=== PATIENT | male | born 1975 | race Caucasian/White ===

== ENCOUNTER 2018-12-25 11:05 | Emergency (ER) | payer BC, OTHER ==
[~2018-12-25] VITALS: Ht 160 cm; Wt 68.0 kg
[2018-12-25 11:37] LABS: ABSOLUTE NEUTROPHILS 13.2 thou/uL (1.4-8.2); BASOPHILS 0.3 % (0.0-2.0); EOSINOPHILS 0.1 % (0.0-3.0); HEMATOCRIT 48.6 % (42.0-52.0); HEMOGLOBIN 16.2 gm/dL (14.0-18.0); LYMPHOCYTES 5.1 % (24.0-44.0); MCH 32.7 pg (26.0-34.0); MCHC 33.3 g/dL (28.0-37.0); MCV 98.2 fL (80.0-100.0); MONOCYTES 3.6 % (1.0-8.0); PLATELET COUNT 333 thou/uL (150-400); POLYS 90.9 % (36.0-66.0); RBC 4.95 mil/uL (4.50-6.00); WBC 14.5 thou/uL (4.0-11.0)
[2018-12-25 11:44] LABS: CALCIUM 9.9 mg/dL (8.5-10.1); CREATININE 1.1 mg/dL (0.7-1.3); POTASSIUM 4.9 mmol/L (3.5-5.1)
[2018-12-25 11:50] LABS: ALBUMIN 4.2 g/dL (3.4-5.0); TOTAL BILIRUBIN 0.4 mg/dL (<0.1-1.0); TOTAL PROTEIN 8.5 g/dL (6.4-8.2)
[2018-12-25] MEDS ORDERED: NORCO 5-325 TA1 EAC1 PO (11:57)
[2018-12-25] MEDS ORDERED: ULTRAM 50MG TAB50 MG PO (11:57)
[2018-12-25 12:02] LABS: URINE BILIRUBIN NEGATIVE (Negative); URINE BLOOD 2+ (Negative); URINE CLARITY CLEAR; URINE COLOR YELLOW; URINE GLUCOSE-RANDOM* NEGATIVE (Negative); URINE KETONES NEGATIVE (Negative); URINE LEUKOCYTES-REFLEX NEGATIVE (Negative); URINE NITRITE-REFLEX NEGATIVE (Negative); URINE PROTEIN (DIPSTICK) NEGATIVE (Negative); URINE UROBILINOGEN 0.2 E.U./dl (0.2-1.0)
[2018-12-25 12:09] LABS: CASTS None Seen /LPF (None Seen); MUCUS >6 Heavy strn/LPF (None Seen); SQUAMOUS 0-3 Few /LPF (0-3)
[2018-12-25 12:10] LABS: BACTERIA-REFLEX 1-9 Few /HPF (None Seen); CRYSTALS None Seen /LPF (None Seen); URINE RBC 3-10 Few /HPF (0-2); URINE WBC-REFLEX 0-5 Rare /HPF (0-5)
[2018-12-25] MEDS ORDERED: ONDANSETRON HCL4 M2 PO (13:29)
[2018-12-25] MEDS ORDERED: BENTYL 20 MG TA20 M1 PO (13:29)
[2018-12-25 13:42] VITALS: BP 112/64
== END 2018-12-25 13:43 | disposition home or self-care (01) ==
LOC: ER 11:05
PROVIDERS: Physician Assistant
DX: R19.7 Diarrhea, unspecified (principal); R11.2 Nausea with vomiting, unspecified; E78.00 Pure hypercholesterolemia, unspecified; Z90.49 Acquired absence of other specified parts of digestive tract; Z90.79 Acquired absence of other genital organ(s); Z88.6 Allergy status to analgesic agent